=== PATIENT | male | born 1950 | race Caucasian/White ===

== ENCOUNTER 2016-09-30 11:18 | Emergency (ER) | payer MEDICARE ==
[2016-09-30 11:57] LABS: BASO # 0.1 x10^3/uL (0.0-0.2); BASO % 2 % (0-3); EOS # 0.3 x10^3/uL (0.0-0.7); EOS % 4 % (0-3); HEMATOCRIT 42.2 % (39.0-53.0); HEMOGLOBIN 13.7 g/dL (13.0-17.5); LYMPH # 1.7 x10^3/uL (1.0-4.8); LYMPH % 21 % (24-48); MEAN CORPUSCULAR HEMOGLOBIN 31 pg (25-35); MEAN CORPUSCULAR HGB CONC 32 g/dL (31-37); MEAN CORPUSCULAR VOLUME 95 fL (79-100); MONO # 0.6 x10^3/uL (0.0-1.1); MONO % 7 % (0-9); NEUT # 5.5 x10^3uL (1.8-7.7); NEUT % 67 % (31-73); PLATELET COUNT 303 x10^3/uL (140-400); RED BLOOD COUNT 4.45 x10^6/uL (4.30-5.70); RED CELL DISTRIBUTION WIDTH 14.1 % (11.5-14.5); WHITE BLOOD COUNT 8.3 x10^3/uL (4.0-11.0)
[2016-09-30] MEDS ORDERED: ALBUTEROL SULFATE 2.5 MG/3 ML NEBU. CONT NEB ONE (12:00)
[2016-09-30] MEDS ORDERED: IPRATROPIUM BROMIDE 0.5 MG/2.5 ML NEBU. NEB ONE (12:00)
[2016-09-30] MEDS ORDERED: methylPREDNISolone SOD SUCC PF 125 MG/2 ML VIAL. IV ONE (12:00)
--- NOTE | 2016-09-30 12:52 | RAD ---
Portable AP view CXR: Clinical indications: Shortness of breath. COPD. Comparison: None available. Findings: No acute lung infiltrate or pleural effusion or pulmonary edema or lung mass or pneumothorax is seen. The heart size, pulmonary vasculature, mediastinum and both rita are unremarkable. Deformities of the lateral aspect of the left seventh and 10th ribs are seen consistent with rib fractures. Impression: No acute lung.. Left rib cage fractures of indeterminate age..
[2016-09-30 13:12] LABS: ALBUMIN 3.3 g/dL (3.4-5.0); ALBUMIN/GLOBULIN RATIO 0.9 (1.0-1.7); CALCIUM 8.7 mg/dL (8.5-10.1); CREATININE 0.8 mg/dL (0.7-1.3); GFR 96.1; POTASSIUM 4.9 mmol/L (3.5-5.1); TOTAL BILIRUBIN 0.3 mg/dL (0.2-1.0); TOTAL PROTEIN 6.9 g/dL (6.4-8.2)
--- NOTE | 2016-09-30 13:16 | ED.ADGEN ---
Past History Past Medical History: CAD, COPD, CT Past Surgical History: No Surgical History Alcohol Use: Sober Additional Alcohol Information: states he hasn't had a drink in 15 years, describes self as "was a heavy drinker" Adult General Chief Complaint Chief Complaint Shortness of air, chest pain HPI HPI Patient is a 66-year-old [facility] patient with history of CAD, CT, COPD, supplemental O2 dependent who presents with increasing shortness of breath for the past several days with productive cough with yellow sputum production. Patient reports shortness of breath at rest with left-sided chest wall pain with deep inspiration. Reports sweats, but denies or chills nausea. Also reports urinary and fecal incontinence. No leg pain or swelling. No history of DVT or PE. Review of Systems Review of Systems Review of symptoms as per history of present illness. Current Medications Current Medications Current Medications Medications (Trade) Dose Ordered Sig/Aleyda Start Time Stop Time Status Last Admin Dose Admin Albuterol Sulfate (Ventolin) 5 mg 1X ONCE 09/30/16 12:00 09/30/16 12:01 DC 09/30/16 11:57 5 MG Ipratropium [place] (Atrovent) 0.5 mg 1X ONCE 09/30/16 12:00 09/30/16 12:01 DC 09/30/16 11:48 0.5 MG Methylprednisolone Sodium Succinate (Solu-Medrol 125mg Vial) 125 mg 1X ONCE 09/30/16 12:00 09/30/16 12:01 DC 09/30/16 12:00 125 MG Allergies Allergies Allergies Coded Allergies Type Severity Reaction Last Updated Verified sertraline Allergy Unknown 09/30/16 Yes Physical Exam Physical Exam Constitutional: Disheveled, cachectic, moderate respiratory distress. HENT: Normocephalic, atraumatic, bilateral external ears normal, oropharynx moist, no oral exudates, nose normal. Eyes: PERRL, EOMI, conjunctiva normal. Neck: Normal range of motion, supple. Cardiovascular:Heart rate regular rhythm, no murmur. Lungs & Thorax: Patient's labored, respiratory rate low 30s, retractions with decreased air movement bilaterally, faint inspiratory next 40 wheezes. Speaks in 5-7 word sentences. Skin: Warm, dry, no erythema. Back: No tenderness. Extremities: No tenderness. Neurologic: Alert and oriented X 3, normal motor function, normal sensory function, no focal deficits noted. Psychologic: Affect normal, judgement normal, mood normal. Current Patient Data Vital Signs Vital Signs Date Time Temp Pulse Resp B/P Pulse Ox O2 Delivery O2 Flow Rate FiO2 09/30/16 12:30 100 CONTINOUS TX 09/30/16 12:24 2.0 09/30/16 11:32 98.1 105 20 Lab Results Laboratory Tests Test 09/30/16 11:25 09/30/16 12:35 White Blood Count 8.3x10^3/uL (4.0-11.0) Red Blood Count 4.45x10^6/uL (4.30-5.70) Hemoglobin 13.7g/dL (13.0-17.5) Hematocrit 42.2% (39.0-53.0) Mean Corpuscular Volume 95fL (79-100) Mean Corpuscular Hemoglobin 31pg (25-35) Mean Corpuscular Hemoglobin Concent 32g/dL (31-37) Red Cell Distribution Width 14.1% (11.5-14.5) Platelet Count 303x10^3/uL (140-400) Neutrophils (%) (Auto) 67% (31-73) Lymphocytes (%) (Auto) 21% (24-48) L Monocytes (%) (Auto) 7% (0-9) Eosinophils (%) (Auto) 4% (0-3) H Basophils (%) (Auto) 2% (0-3) Neutrophils # (Auto) 5.5x10^3uL (1.8-7.7) Lymphocytes # (Auto) 1.7x10^3/uL (1.0-4.8) Monocytes # (Auto) 0.6x10^3/uL (0.0-1.1) Eosinophils # (Auto) 0.3x10^3/uL (0.0-0.7) Basophils # (Auto) 0.1x10^3/uL (0.0-0.2) Troponin I Quantitative < 0.017ng/mL (0-0.055) EKG EKG [EKG: Sinus tach, rate 109, no acute ST-T wave changes. QTC 304.] Radiology/Procedures Radiology/Procedures [Chest x-ray: No acute cardiopulmonary disease, left sided rib fractures indeterminate age per radiology report.] Impressions: Acute on chronic respiratory failure with COPD exacerbation Course & Med Decision Making Course & Med Decision Making Pertinent Labs and Imaging studies reviewed. (See chart for details) [Nebs, steroids, oxygen given with limited improvement. Patient declines BiPAP, but is willing to consider later BiPAP and/or intubation later if symptoms worse. 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 ] Final Impression Final Impression [1. Acute on chronic respiratory failure with hypercapnia 2. COPD exacerbation] Problems: Dragon Disclaimer Dragon Disclaimer This electronic medical record was generated, in whole or in part, using a voice recognition dictation system. UMBERTO ESPINOZA DO Sep 30, 2016 13:16
[2016-09-30 14:30] VITALS: BP 124/70
--- NOTE | 2016-09-30 20:57 | EKG ---
[address] [address] Test Date: 2016-09-30 Test Time: 11:47:19 Pat Name: TINO WRIGHT Department: Room: Gender: M [employer] Supervisor: : [id number] Requested By: UMBERTO ESPINOZA Order Number: [id number] Reading MD: Measurements Intervals [place] Rate: 109 P: 90 MT: 128 QRS: 67 QRSD: 86 T: 52 QT: 304 QTc: 411 Interpretive Statements SINUS TACHYCARDIA QRS(T) CONTOUR ABNORMALITY CONSIDER ANTEROSEPTAL MYOCARDIAL DAMAGE POSSIBLY ABNORMAL ECG RI6.01 Unconfirmed report No previous ECG available for comparison
== END 2016-09-30 14:19 ==
LOC: ER 11:18
DX: J96.22 Acute and chronic respiratory failure with hypercapnia (principal); J44.1 Chronic obstructive pulmonary disease with (acute) exacerbation; R15.9 Full incontinence of feces; I25.10 Atherosclerotic heart disease of native coronary artery without angina pectoris; I25.2 Old myocardial infarction; Z99.81 Dependence on supplemental oxygen; Z88.8 Allergy status to other drugs, medicaments and biological substances
CPT/HCPCS: 36415; 71010; 80053; 82803; 83880; 84484; 85027; 87040; 93005; 94644; 96374; 99285; J2930; J7613; J7644